=== PATIENT | male | born 1940 | race Caucasian/White ===

== ENCOUNTER → 2021-02-09 | Outpatient (CLI) | payer MEDICARE, OTHER ==
[~2021-02-09] MED LIST: ATOR1TAB19 PO; COVI100V IM; ENAL20TA11 PO; EZET10TA21 PO; FAMO40TA3 PO; FLOM0.4C39 PO; GASTROGRAFIN SOLUTION 30ML (Q9963) As Ordered ONE; INSUHUMDS SC; INVO300T PO; ISOVUE-370 76% 100ML VIAL As Ordered ONE; JANU100T PO; LANS30CA93 PO; LANTINJ4 IM; MORP15TA2 PO; ONDA8TAB10 PO; PREV1CAP PO; PROC10TA4 PO; SUCR1TAB56 PO; TOPR50TA PO
--- NOTE | 2021-02-25 04:53 | REP ---
INDICATION: MET PANCREATIC CA COMPARISON: 11/21/2019 TECHNIQUE: Axial contrast enhanced images from the thoracic inlet to the upper abdomen using 100 ml Isovue 370 intravenous contrast material followed by CT of the abdomen and pelvis. Coronal and sagittal reformations obtained. This CT examination was performed using the following dose reduction techniques: Automated exposure control, adjustment of mA and/or kv according to the patient's size, and use of iterative reconstruction technique. FINDINGS: The lung atwood demonstrate mild chronic appearing linear fibroatelectatic changes at the bases along with mild bronchiectasis. No acute consolidation, obvious nodule or mass. No pleural effusion. No pneumothorax. No significant axillary, hilar, or mediastinal adenopathy. Few calcified mediastinal lymph nodes suggest prior granulomatous disease. Atherosclerotic changes to the aorta and coronary arteries noted. No cardiomegaly or pericardial effusion. [id number] identified with tip in the SVC. Musculoskeletal structures without acute osseous abnormality identified. IMPRESSION: Relatively chronic age-related changes are suggested. No evidence acute mediastinal or pleuroparenchymal process. No evidence for intrathoracic metastatic disease. <Electronically signed by Marcello Yao > 02/25/21 [id number]
--- NOTE | 2021-02-25 05:07 | REP ---
INDICATION: MET PANCREATIC CA. COMPARISON: 11/21/2020 TECHNIQUE: Axial contrast-enhanced images from the lung bases to the pubic symphysis using oral and 100 cc Isovue 370 intravenous contrast material. Delayed images of the abdomen along with coronal and sagittal reformations obtained. This CT examination was performed using the following dose reduction techniques: Automated exposure control, adjustment of mA and/or kv according to the patient's size, and the use of iterative reconstruction technique. FINDINGS: Increased number of low-density metastatic lesions noted throughout the liver measuring up to roughly 4.4 cm maximal diameter at the caudate lobe which is unchanged and new lesions measuring 3.5 cm and 4.5 cm along the inferior aspects of the right and left hepatic lobes. Low-density neoplastic changes within the mid body of the pancreas are again noted and similar to prior examination. A common bile duct stent is identified extending from the head of the pancreas to the duodenum and pneumobilia is again noted. Patient is post cholecystectomy. Scattered mesenteric lymph nodes measuring up to roughly 13 mm are nonspecific. Spleen again demonstrates a 1 cm hyperdense focus along the medial aspect unchanged from prior examination and possibly representing hemangioma. The bilateral adrenal glands and kidneys are essentially normal/stable including 5 mm and 1.8 cm simple left renal cysts. Small and large bowel is without obstruction or acute inflammatory process. Hurley catheter identified within the bladder. The prostate gland is mildly prominent with chronic parenchymal calcifications again noted. Small fat containing inguinal hernias identified (right greater than left). 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 A more inferior area of partially thrombosed fusiform aneurysm is also identified in the infrarenal abdominal aorta which measures approximately 3 x 3.2 cm maximal diameter and roughly 4 cm in length terminating above the level of the bifurcation. No ascites. No free air. Abdominal aorta and vasculature appear normal. Musculoskeletal structures are intact and without acute osseous abnormality. IMPRESSION: 1. Increased hepatic metastatic lesions. 2. Neoplastic change in the mid body of the pancreas remains relatively stable in size and appearance. 3. Few scattered mesenteric lymph nodes up to 13 mm are nonspecific but raise the possibility of metastasis. 4. Stable 1 cm hyperdense focus in the spleen likely hemangioma. 5. Stable saccular and fusiform aortic aneurysms as described above. 6. CBD stent and pneumobilia again noted and stable. <Electronically signed by Marcello Yao > 02/25/21 [id number]
== END ==
LOC: M RAD 15:27
PROVIDERS: ATTEND Internal Medicine Medical Oncology
DX: C25.9 Malignant neoplasm of pancreas, unspecified (principal); R93.2 Abnormal findings on diagnostic imaging of liver and biliary tract; R93.5 Abnormal findings on diagnostic imaging of other abdominal regions, including retroperitoneum; Z96.89 Presence of other specified functional implants; K83.8 Other specified diseases of biliary tract
CPT/HCPCS: 71260; 74177; Q9963; Q9967